=== PATIENT | male | born 1995 | race Caucasian/White ===

== ENCOUNTER 2018-10-25 20:53 | Emergency (ER) | payer OTHER ==
[~2018-10-25] VITALS: Ht 180.3 cm; Wt 61.2 kg
[~2018-10-25 20:53] MED LIST: AMOX500 PO; CEPH500 PO; CODACEE120 PO; HYDACE5 PO; IBUP600 PO; NEOPOLHCSU AU; PENVK250SU PO; SULF10OPSA OU; Tylenol325 MG PO; Veetids 500500 MG PO
[2018-10-25] MEDS ORDERED: Pepcid20 MG PO (22:04)
[2018-10-25] MEDS ORDERED: HYOS.125 SL (22:04)
== END 2018-10-25 22:10 | disposition home or self-care (01) ==
LOC: ER 20:53
DX: R10.13 Epigastric pain (principal); R19.15 Other abnormal bowel sounds; F17.210 Nicotine dependence, cigarettes, uncomplicated
CPT/HCPCS: 74022; 99284-25